=== PATIENT | male | born 1980 | race Asian ===

== ENCOUNTER 2017-04-30 14:48 | Emergency (ER) | payer OTHER ==
[2017-04-30 17:07] LABS: microscopic required? NO
[2017-04-30 17:11] LABS: BASOPHIL % 0.1 % (0-2); PLATELET COUNT 254 x10^3mcL (130-400); RED CELL DISTRIBUTION WIDTH 13.2 % (11.5-14.5)
[2017-04-30 17:39] LABS: CALCIUM 9.2 mg/dL (8.5-10.1); CARBON DIOXIDE 26.3 mmol/L (21-32); CHLORIDE SERUM 104 mmol/L (98-107); CREATININE SERUM 1.1 mg/dL (0.7-1.3); GFR1 > 60 mL/min; GLUCOSE SERUM 93 mg/dL (74-106); POTASSIUM SERUM 3.5 mmol/L (3.5-5.1); SODIUM SERUM 140 mmol/L (136-145)
[2017-04-30 17:44] LABS: urine erythrocyte NEGATIVE (NEGATIVE)
[2017-04-30 17:51] LABS: ALBUMIN 4.3 g/dL (3.4-5.0); ALKALINE PHOSPHATASE 66 U/L (46-116); ALT/SGPT 20 U/L (16-63); AST/SGOT 13 U/L (15-37); BILIRUBIN TOTAL 0.6 mg/dL (0.20-1.00); CHOLESTEROL 170 mg/dL (<200); HDL CHOLESTEROL 52 mg/dL (40-60); MAGNESIUM 2.2 mg/dL (1.8-2.4); PHOSPHOROUS 1.8 mg/dL (2.5-4.9); T4(THYROXINE) 9.1 ug/dL (4.7-13.3); TOTAL PROTEIN, SERUM 8.2 g/dL (6.4-8.2)
[2017-04-30 18:10] LABS: AMPHETAMINE QUAL UR NONE DETECTED (NEG <=1000)
[2017-04-30 19:03] VITALS: BP 136/92
== END 2017-04-30 19:03 | disposition home or self-care (01) ==
LOC: ED 14:48
PROVIDERS: Emergency Medicine
DX: R53.1 Weakness (principal); I10 Essential (primary) hypertension
CPT/HCPCS: J7030